=== PATIENT | male | born 1955 | race Caucasian/White ===

== ENCOUNTER → 2020-01-25 | Outpatient (CLI) | payer BC ==
[~2020-01-25] MED LIST: CLOB.05TO; FISH OIL 1,001000 MG PO; HYDCHL25 PO; Quinapril HCl20 MG PO; SILDENAFIL20 MG PO; Vitamin D2000 UNIT PO
[2020-01-25 15:38] LABS: Bun/Creatinine Ratio 14.8 (12.0-20.0); Calcium, Blood 9.8 mg/dL (8.5-10.1); Creatinine, Blood 2.64 mg/dL (0.60-1.20)
== END ==
LOC: LAB EV 15:30 → LAB SHORT 15:30
PROVIDERS: General Practice
DX: M10.9 Gout, unspecified (principal)
CPT/HCPCS: 80048; 84550

== ENCOUNTER → 2020-08-10 | Outpatient (CLI) | payer BC | LOC: LAB SHORT 07:58 | DX: C44.219 Basal cell carcinoma of skin of left ear and external auricular canal (principal); L57.0 Actinic keratosis | CPT/HCPCS: 88305 ==

== ENCOUNTER → 2020-08-12 | Outpatient (CLI) | payer BC | END | disposition home or self-care (01) | LOC: LAB SHORT 07:39 | DX: L57.8 Other skin changes due to chronic exposure to nonionizing radiation (principal) | CPT/HCPCS: 88305 ==

== ENCOUNTER 2024-04-19 06:55 | Day surgery (SDC) | payer OTHER ==
[~2024-04-19] VITALS: Ht 177.8 cm; Wt 98.2 kg
[~2024-04-19 06:55] MED LIST changes: +ALLO100 PO; +ATOR40TA PO; +Amlodipine Bes2.5 MG PO; +Crestor40 MG PO; +LISI20 PO; +Lactated Ringer's 1,000 ML IV SCH; +OMEGA-3-FISH O1 EAC3 PO; +[UNRECOGNIZED DRUG - OTHER]; +propofoL 40 ML IV ONE
--- NOTE | 2024-04-19 07:53 | NUR ---
History, Chart, Medications and Allergies reviewed before start of procedure.PRE OP TEACHING DONE
--- NOTE | 2024-04-19 08:04 | NUR ---
04/19/24 0804 Ernesto Felipe MONITOR INTACT WITH CONTINUOUS PULSE OXIMETRY, CONTINUOUS END TITAL CO2, AND INTERMITTENT BLOOD PRESSURE.AND EKG ANESTHESIA PER Marcos TREVINO [employer]MENT MECH[employer]IC SPECIALIST
[2024-04-19 08:25] VITALS: BP 97/67
[2024-04-19 08:30] VITALS: BP 102/61
[2024-04-19 08:40] VITALS: BP 107/73
--- NOTE | 2024-04-19 08:49 | NUR ---
0825 REPORT RECEIVED FROM KRUPA KING AND ALTHEA YOUSIF. VSS. PT ON RA. PT ABLE TO REPOSITION SELF IN BED. PT REQUESTING PO FLUIDS AND TOLERATING THEM WELL. PT DENIES PAIN, NAUSEA OR OTHER DISCOMFORTS. PT AT BEDSIDE.
--- NOTE | 2024-04-19 08:50 | NUR ---
Patient up to Ambulate independently. Gait steady. VSS AND CONSISTENT WITH PT BASELINE. PT HAS NO COMPLAINTS AND VERBALIZES READINESS TO GO HOME. Discharge instructions reviewed with patient. Patient verbalizes understanding. Copy given to patient to take home. Patient States Post-Procedure ride home has been arranged. Discharged via wheelchair to private car for ride home. PT BELONGINGS RETURNED TO PT. PT BELONGINGS RETURNED TO PT.
== END 2024-04-19 08:50 | disposition home or self-care (01) ==
LOC: ORSCMMR 06:55 → ORD 08:15 → ORSCMMR 08:50
PROVIDERS: Surgery
PROC: 0DJD8ZZ Inspection of Lower Intestinal Tract, Via Natural or Artificial Opening Endoscopic (ICD-10-PCS; principal; 2024-04-19 08:15)
DX: Z12.11 Encounter for screening for malignant neoplasm of colon (principal); Z80.0 Family history of malignant neoplasm of digestive organs; Z86.0101 Personal history of adenomatous and serrated colon polyps; N40.0 Benign prostatic hyperplasia without lower urinary tract symptoms; I12.9 Hypertensive chronic kidney disease with stage 1 through stage 4 chronic kidney disease, or unspecified chronic kidney disease; N18.9 Chronic kidney disease, unspecified; G47.33 Obstructive sleep apnea (adult) (pediatric); E66.9 Obesity, unspecified; Z68.31 Body mass index [BMI] 31.0-31.9, adult; Z79.899 Other long term (current) drug therapy
CPT/HCPCS: J2704; J7120